=== PATIENT | female | born 1985 | race Caucasian/White ===

== ENCOUNTER 2018-01-20 03:28 | Emergency (ER) | payer SELFPAY | END 2018-01-20 05:00 | disposition left against medical advice (07) | LOC: FTE 03:28 | DX: Z53.21 Procedure and treatment not carried out due to patient leaving prior to being seen by health care provider (principal) ==

== ENCOUNTER 2018-01-20 06:47 | Emergency (ER) | payer MEDICAID ==
[2018-01-20] MEDS: IBUPROFEN 600 MG TAB PO (07:38)
[2018-01-20] MEDS: ACETAMINOPHEN 500 MG TAB PO (07:38)
== END 2018-01-20 08:36 | disposition home or self-care (01) ==
LOC: FTE 06:47
DX: H66.92 Otitis media, unspecified, left ear (principal)
CPT/HCPCS: 99283; Z7502